=== PATIENT | female | born 1990 | race Caucasian/White ===

== ENCOUNTER 2017-04-18 19:10 | Emergency (ER) | payer OTHER ==
[2017-04-18 19:26] VITALS: BMI 23.8
[2017-04-18] MEDS ORDERED: SODIUM CHLORIDE 1,000 ML IV STA (23:55)
[2017-04-18] MEDS ORDERED: KETOROLAC TROMETHAMINE 30 MG/1 ML VIAL IVPUSH ONE (23:55)
--- NOTE | 2017-04-19 00:08 | PDOC ---
*Physical Exam - Vital Signs Last Vital Signs Temp Pulse Resp BP Pulse Ox 98.3 F 87 18 120/57 99 04/18/17 19:23 04/18/17 19:23 04/18/17 19:23 04/18/17 19:23 04/18/17 19:23 - Physical Exam Comments: 04/19/17 00:06 The patient was examined by [LISA Monson] under my direct supervision. I personally evaluated the patient. I concur with the above findings and the plan of care. 26-year-old female from [facility] presents to the ER with pleuritic left- sided chest and back pain radiating to the left arm after arriving from [facility] several days previously. Patient has history of rheumatic heart disease and requires monthly injections of Bicillin penicillin. In the ER, patient is awake and alert, nontoxic appearing; vital signs are noted. Will obtain EKG. Will rule out PE with CTA or a of chest. We'll administer Bicillin penicillin. Will reassess. ED Treatment Course - LABORATORY CBC & Chemistry Diagram: 04/19/17 00:45 04/19/17 00:45 *DC/Admit/Observation/Transfer Diagnosis at time of Disposition: Atypical chest pain - Discharge Dispostion Disposition: HOME Condition at time of disposition: Stable - Referrals Referrals: Juliocesar Gonzalez MD [Staff Physician] - - Patient Instructions Printed Discharge Instructions: Polymyalgia Rheumatica, DI for Atypical Chest Pain Additional Instructions: Follow up with your primary care doctor. You should schedule these future injections with your doctor so you are not waiting in the emergency department for 4-6 hours. Return if any changes or concerns for further evaluation. You may also follow up with Dr. Gonzalez (Cardiology) to establish care. Print Language: ARMENIAN
[2017-04-19] MEDS ORDERED: PENICILLIN G BENZATHINE 1,200,000 UNIT/2 ML PFS IM ONE (00:15)
[2017-04-19] MEDS ORDERED: KETOROLAC TROMETHAMINE 30 MG/1 ML VIAL ONE (00:24)
[2017-04-19] MEDS ORDERED: PENICILLIN G BENZATHINE 2,400,000 UNIT/4 ML PFS ONE (00:25)
--- NOTE | 2017-04-19 00:43 | PDOC ---
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 states patient usually received PCN L-A for her symptoms every 21 days while back in [facility]. He reports she just came to this country 2 weeks ago and is now experiencing these symptoms because she has not received her antibiotic injection. Patient also c/o back pain on deep inspiration. She reportedly denies any other complaints at this time. LNMP: 2 weeks ago. PCP- None. Timing/Duration: constant Severity: moderate Modifying Factors: improves with: medication Associated Symptoms: denies: denies symptoms, chest pain, cough, diaphoresis, fever/chills, headaches, loss of appetite, malaise, nausea/vomiting, rash, seizure, shortness of breath, syncope, weakness, other Past History - Travel Traveled outside of the country in the last 30 days: No Close contact w/someone who was outside of country & ill: No - Past Medical History Allergies/Adverse Reactions: Allergies Allergy/AdvReac Type Severity Reaction Status Date / Time No Known Allergies Allergy Verified 04/18/17 19:25 Other medical history: rheumatoid arthritis - Suicide/Smoking/Psychosocial Hx Smoking History: Never smoked Review of Systems - Review of Systems Able to Perform ROS?: Yes Is the patient limited Latvian proficient: No Constitutional: No: Chills, Fever Respiratory: No: Cough, Shortness of Breath, Wheezing, Hemoptysis Cardiac (ROS): Yes: Chest Pain. No: Lightheadedness, Palpitations, Syncope, Chest Tightness ABD/GI: No: Constipated, Diarrhea, Nausea, Poor Appetite, Poor Fluid Intake, Vomiting, Abdominal cramping : No: Burning, Dysuria, Flank Pain, Hematuria Musculoskeletal: Yes: Back Pain Integumentary: No: Bruising, Erythema, Rash, Sweating Neurological: No: Headache, Tremors, Ataxia, Dizziness All Other Systems: Reviewed and Negative *Physical Exam - Vital Signs Last Vital Signs Temp Pulse Resp BP Pulse Ox 98.3 F 87 18 120/57 99 04/18/17 19:23 04/18/17 19:23 04/18/17 19:23 04/18/17 19:23 04/18/17 19:23 - Physical Exam General Appearance: Yes: Nourished, Appropriately Dressed, Mild Distress. No: Apparent Distress, Moderate Distress, Severe Distress Neck: positive: Trachea midline, Supple. negative: Tender, Normal Thyroid, Rigid, Stridor, Lymphadenopathy (R), Lymphadenopathy (L), Tender lateral, Tender midline Respiratory/Chest: positive: Lungs Clear, Normal Breath Sounds. negative: Chest Tender, Respiratory Distress, Accessory Muscle Use, Labored Respiration, Rapid RR, Decreased Breath Sounds, Paradoxal Breathing, Rhonchi, Stridor, Wheezing Cardiovascular: positive: Regular Rhythm, Regular Rate Gastrointestinal/Abdominal: positive: Normal Bowel Sounds, Soft. negative: Distended, Guarding, Rebound, Tenderness Musculoskeletal: positive: Normal Inspection, Other (Reproducible chest pain on palpation.). negative: CVA Tenderness Extremity: positive: Normal Capillary Refill, Normal Inspection, Normal Range of Motion. 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 NML intact, Fully Oriented, Alert, Normal Mood/ Affect, Normal Response, Motor Strength 5/5 ED Treatment Course - LABORATORY CBC & Chemistry Diagram: 04/19/17 00:45 04/19/17 00:45 - RADIOLOGY Radiology Studies Ordered: Category Date Time Status CHEST CTA [CT] Stat CT Scan 04/19/17 00:07 Ordered *DC/Admit/Observation/Transfer Diagnosis at time of Disposition: Atypical chest pain - Discharge Dispostion Disposition: HOME Condition at time of disposition: Stable Admit: No - Referrals Referrals: Juliocesar Gonzalez MD [Staff Physician] - - Patient Instructions Printed Discharge Instructions: Polymyalgia Rheumatica, DI for Atypical Chest Pain Additional Instructions: Follow up with your primary care doctor. You should schedule these future injections with your doctor so you are not waiting in the emergency department for 4-6 hours. Return if any changes or concerns for further evaluation. You may also follow up with Dr. Gonzalez (Cardiology) to establish care. Print Language: FRENCH
[2017-04-19 01:04] LABS: BASOPHIL 0.7 % (0-2.0); EOSINOPHIL 3.8 % (0-4.5); MCH 30.7 pg (25.7-33.7); MCHC 33.5 g/dl (32.0-36.0); MEAN CELL VOLUME 91.5 fl (80-96); NEUTROPHILS 35.3 % (42.8-82.8); PLATELET COUNT 250 K/MM3 (134-434); RDW 13.8 % (11.6-15.6); URINE APPEARANCE SLCLOUDY; URINE BILIRUBIN NEGATIVE (NEGATIVE); URINE BLOOD NEGATIVE (NEGATIVE); URINE COLOR LTYELLOW; URINE GLUCOSE (UA) NEGATIVE (NEGATIVE); URINE KETONE NEGATIVE (NEGATIVE); URINE LEUK ESTERASE TRACE (NEGATIVE); URINE NITRITE NEGATIVE (NEGATIVE); URINE PROTEIN NEGATIVE (NEGATIVE); URINE UROBILINOGEN NEGATIVE mg/dL (0.2-1.0)
[2017-04-19 01:09] LABS: URINE MUCUS RARE; URINE RBC <1 /hpf (0-3); URINE WBC 6 /hpf (3-5)
[2017-04-19 01:22] LABS: INR 1.12 (0.82-1.09); PROTHROMBIN TIME (PATIENT) 12.4 SEC (9.98-11.88)
[2017-04-19 01:25] LABS: ACTIVATED PTT 33.7 SECONDS (26.9-34.4)
[2017-04-19 01:30] LABS: ALBUMIN 3.8 g/dl (3.4-5.0); ANION GAP 7 (8-16); CALCIUM 8.9 mg/dL (8.5-10.1); CO2 28 mmol/L (21-32); CREATININE 0.5 mg/dL (0.55-1.02); GLUCOSE,RANDOM 87 mg/dL (74-106); SGOT/AST 16 U/L (15-37); SGPT/ALT 28 U/L (12-78)
[2017-04-19 01:33] LABS: ALK PHOS 51 U/L (45-117); BILIRUBIN,TOTAL 0.2 mg/dL (0.2-1.0); CPK 56 IU/L (26-192); TOT PROT 6.9 g/dl (6.4-8.2); TROPONIN I < 0.02 ng/ml (0.00-0.05)
[2017-04-19 03:42] VITALS: BP 115/68; PULSE 80; TEMP 98
--- NOTE | 2017-04-19 10:42 | EKG ---
Test Reason : Blood Pressure : / mmHG Vent. Rate : 056 BPM Atrial Rate : 056 BPM P-R Int : 148 ms QRS Dur : 078 ms QT Int : 440 ms P-R-T Axes : 048 040 043 degrees QTc Int : 424 ms SINUS BRADYCARDIA OTHERWISE NORMAL ECG NO PREVIOUS ECGS AVAILABLE Confirmed by CONRADO ROSA MD ([id number]) on 04/19/2017 10:42:20 AM Referred By: Confirmed By:CONRADO ROSA MD
--- NOTE | 2017-04-26 14:19 | EKG ---
Test Reason : Blood Pressure : / mmHG Vent. Rate : 075 BPM Atrial Rate : 075 BPM P-R Int : 134 ms QRS Dur : 078 ms QT Int : 376 ms P-R-T Axes : 067 061 060 degrees QTc Int : 419 ms NORMAL SINUS RHYTHM WITH SINUS ARRHYTHMIA POSSIBLE LEFT ATRIAL ENLARGEMENT BORDERLINE ECG NO PREVIOUS ECGS AVAILABLE Confirmed by CONRADO ROSA MD ([id number]) on 04/26/2017 2:19:19 PM Referred By: Confirmed By:CONRADO ROSA MD
== END 2017-04-19 03:42 | disposition home or self-care (01) ==
LOC: JER 19:10
PROC: 3E02329 Introduction of Other Anti-infective into Muscle, Percutaneous Approach (ICD-10-PCS; principal; 2017-04-18)
PROC: 3E0333Z Introduction of Anti-inflammatory into Peripheral Vein, Percutaneous Approach (ICD-10-PCS; 2017-04-18)
DX: R07.89 Other chest pain (principal); I09.9 Rheumatic heart disease, unspecified
CPT/HCPCS: 36415; 71275-TC; 80053; 81003; 81015; 84484; 84703; 85025; 85379; 85610; 85730; 93005; 93010; 99282-25

== ENCOUNTER 2018-01-02 19:15 | Inpatient (IN) | payer OTHER ==
[2018-01-02] MEDS ORDERED: BUTORPHANOL TARTRATE 1 MG/ML VIAL IVPB ONE (20:16)
[2018-01-02] MEDS ORDERED: PROMETHAZINE HCL 25 MG/1 ML VIAL IVPUSH ONE (20:16)
--- NOTE | 2018-01-02 20:26 | HP ---
Past Medical History - Admission History of Present Illness: Pt is a 27 y/o female at 39.5 weeks gestation here for labor induction due to advanced cervical dilation/elective IOL. Pt seen over the weekend admitted in early prodromal labor which stalled out and the patient was sent home. complicated by abnormal AFP, patient and declined any invasive testing. GBS negative. 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 Weeks Gestation by Dates: 39.5 Psych: No: Anxiety, Bipolar, Depression Endocrine: No: Diabetes Mellitus, Hypothyroidism - Past Surgical History Past Surgical History: Yes: None Hx Myomectomy: No Hx Transabdominal Cerclage: No - Smoking History Smoking history: Never smoked Have you smoked in the past 12 months: No - Alcohol/Substance Use Hx Alcohol Use: No History of Substance Use: reports: None - Social History History of Recent Travel: No Home Medications - Allergies Allergies/Adverse Reactions: Allergies Allergy/AdvReac Type Severity Reaction Status Date / Time No Known Allergies Allergy Verified 09/15/17 12:21 - Home Medications Home Medications: Ambulatory Orders NK [No Known Home Medication] 12/30/17 Assessment/Plan 27 y/o with SIUP at 39.5 weeks for labor induction. - FHTS cat 1 - AFVSS - for AROM and pitocin - GBS negative
[2018-01-02] MEDS ORDERED: OXYTOCIN 30 UNITS in 0.9% NS 30 UNIT/500 ML INFUS.BAG IVPB SCH (20:30)
[2018-01-02] MEDS ORDERED: DEXTROSE 5%-LACTATED RINGERS 1,000 ML IV SCH (20:30)
[2018-01-02] MEDS ORDERED: OXYTOCIN 20 UNITS in 0.9% NS 20 UNIT/1,000 ML INFUS.BAG IV ONE ×2 (20:44→23:33)
[2018-01-02] MEDS ORDERED: OXYTOCIN 30 UNITS in 0.9% NS 30 UNIT/500 ML INFUS.BAG IVPB ONE (20:44)
[2018-01-02 21:17] VITALS: BMI 30.9
--- NOTE | 2018-01-02 21:55 | PN ---
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
[2018-01-02] MEDS ORDERED: BENZOCAINE 20% 57 GM BOTTLE TP PRN (22:09)
[2018-01-02] MEDS ORDERED: METHYLERGONOVINE MALEATE 0.2 MG/1 ML AMP IM PRN (22:09)
[2018-01-02] MEDS ORDERED: WITCH HAZEL 50% (TUCKS) 40 PAD/JAR PAD TP PRN (22:09)
[2018-01-02] MEDS ORDERED: BENZOCAINE 28 GM HEMORRHOIDAL OINTMENT TP PRN (22:09)
[2018-01-02] MEDS ORDERED: BISACODYL 10 MG SUPP.RECT RC PRN (22:09)
[2018-01-02] MEDS ORDERED: OXYTOCIN 20 UNITS in 0.9% NS 20 UNIT/1,000 ML INFUS.BAG IV SCH (22:15)
[2018-01-02] MEDS ORDERED: IBUPROFEN 600 MG TABLET (FP) PO ONE (23:33)
[2018-01-02] MEDS ORDERED: ACETAMINOPHEN 325 MG TABLET (FP) ONE (23:33)
[2018-01-02] MEDS: IBUPROFEN 600 MG TABLET (FP) PO PRN (23:40)
[2018-01-02] MEDS: ACETAMINOPHEN 325 MG TABLET (FP) PO PRN (23:40)
[2018-01-03 09:04] LABS: BASO % 0.4 % (0-2.0); EOS % 1.1 % (0-4.5); HEMATOCRIT 26.5 % (32.4-45.2); LYMPH % 26.7 % (8-40); MCH 28.6 pg (25.7-33.7); MCHC 33.8 g/dl (32.0-36.0); MEAN CELL VOLUME 84.4 fl (80-96); MEAN PLT VOLUME 10.1 fl (7.5-11.1); MONO % 9.5 % (3.8-10.2); NEUT % 62.3 % (42.8-82.8); PLATELET COUNT 167 K/MM3 (134-434); RBC 3.14 M/mm3 (3.60-5.2); RDW 15.9 % (11.6-15.6); WHITE BLOOD COUNT 8.9 K/mm3 (4.0-10.0)
--- NOTE | 2018-01-03 09:40 | PN ---
Post Progress Note - Subjective Subjective: Pt seen/evaluated no complaints. Denies pain. No n/v. Bleeding minimal. Type of Delivery: Vital Signs: Vital Signs Temperature 98.0 F 01/03/18 00:15 Pulse Rate 52 L 01/03/18 00:15 Respiratory Rate 20 01/03/18 00:15 Blood Pressure 147/78 01/03/18 00:15 O2 Sat by Pulse Oximetry (%) Uterus: Yes: Fundus Firm Abdomen/GI: Yes: Abdomen soft, Tolerating PO Lochia: Yes: Rubra Lochia, amount: Small Extremities: Yes: Calves non-tender. No: Edema Perineum: Yes: Laceration (1st degree repaired and healing well) Activity: Ambulating Problem List - Problems (1) Vaginal delivery Code(s): O80 - ENCOUNTER FOR FULL-TERM UNCOMPLICATED DELIVERY Assessment/Plan 27 y/o PPD#1 s/p normal , doing well AFVSS CBC Pending regular diet PO pain meds encourage ambulation
[2018-01-03] MEDS: PRENATAL VITAMINS W/ FOLIC ACID TABLET (FP) PO SCH (09:46)
[2018-01-03] MEDS: IBUPROFEN 600 MG TABLET (FP) PO PRN ×2 (10:08→15:56)
[2018-01-03] MEDS: ACETAMINOPHEN 325 MG TABLET (FP) PO PRN ×2 (10:08→15:57)
[2018-01-03] MEDS ORDERED: SENNOSIDES/DOCUSATE COMBO (SENNA PLUS) TABLET (UD) PO PRN (22:00)
[2018-01-04] MEDS: IBUPROFEN 600 MG TABLET (FP) PO PRN (03:24)
--- NOTE | 2018-01-04 03:55 | DS ---
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 Pt had normal post recovery and was discharged home on post day 2. Condition: Good - Instructions Diet, Activity, Other Instructions: call md office for follow up appointment in 4 weeks. Physical activity Resume your normal everyday activity as tolerated no heavy lifting or exercise until seen by your surgeon. You may walk unlimited eric of and climb stairs. You may resume driving the car when you feel safe and comfortable behind the wheel. No sexual activity as instructed. Wound care If you have a bandage, leave it on, and keep dry for 48-72 hours. After that time discard the outer bandage. If they are tapes on the skin under the out of bandage leave them in place. They will peel off in the next 7 to 10 days. Do Not Peel them off. You may shower the day after surgery. If there are tapes present on the skin, you may shower over them. Diet There are no dietary restrictions. Eat healthy, high-fiber foods. Drink 6 to 8 glasses of liquid each day. This will assist in keeping your bowels are regular. Pain management You may take Tylenol or acetaminophen or Ibuprofen (for example, Motrin, Advil etc.) from my pain prescription medication is ordered should be taken as prescribed for moderate to severe pain. Call MD for any of the following: Severe pain not relieved by medication Fever of 101 or higher Excessive bleeding or drainage on dressing Inability to urinate Referrals: Janet Isabel DO [Staff Physician] - (6 weeks) Disposition: HOME - Home Medications Comprehensive Discharge Medication List: Ambulatory Orders Ibuprofen [Motrin -] 600 mg PO QID PRN #28 tablet 01/04/18
[2018-01-04] MEDS: PRENATAL VITAMINS W/ FOLIC ACID TABLET (FP) PO SCH (09:33)
[2018-01-04 10:10] VITALS: BP 97/50; PULSE 67; TEMP 98.3
== END 2018-01-04 11:50 | disposition home or self-care (01) | DRG 560 ==
LOC: JLDR 19:15 → J3W 01-03 00:29
PROVIDERS: ADMIT Obstetrics & Gynecology; ATTEND Obstetrics & Gynecology
PROC: 10E0XZZ Delivery of Products of Conception, External Approach (ICD-10-PCS; principal; 2018-01-02)
PROC: 0HQ9XZZ Repair Perineum Skin, External Approach (ICD-10-PCS; 2018-01-02)
DX: O70.0 First degree perineal laceration during delivery (principal); Z3A.39 39 weeks gestation of pregnancy; Z37.0 Single live birth
CPT/HCPCS: 36415; 59409; 71046-TC-FY; 85025; 85461; 86999

== ENCOUNTER 2018-07-02 10:50 | Emergency (ER) | payer OTHER ==
[2018-07-02 11:09] VITALS: BP 104/60; PULSE 89; TEMP 98.2; BMI 32.3
[2018-07-02] MEDS ORDERED: KETOROLAC TROMETHAMINE 60 MG/2 ML VIAL IM ONE (12:34)
[2018-07-02] MEDS ORDERED: KETOROLAC TROMETHAMINE 60 MG/2 ML VIAL ONE (12:36)
--- NOTE | 2018-07-02 12:40 | PDOC ---
History of Present Illness - General Chief Complaint: Pain, Acute Stated Complaint: PAIN, LT ARM Time Seen by Provider: 07/02/18 12:29 History Source: Patient Exam Limitations: No Limitations - History of Present Illness Initial Comments: 07/02/18 12:38 Patient came for evaluation of left shoulder pain. States his artery been seen by orthopedic surgeon and chaparrita with MRI request. Was hopeful that testing could be done in the emergency Department. was told by insurance with need approval and a specialist for interpretation which they have not yet completed. 2 months ago had a fall and landed on her left shoulder and since that time his had a problem. Has a small child and does frequent heavy lifting with strollers, car seat, and infant care. Denies numbness or tingling to hands, no neck injury. Has been using ibuprofen and cyclobenzaprine but concerned cyclobenzaprine makes her dizzy and sleepy. Occurred: reports: other Severity: reports: moderate Pain Location: reports: upper extremity (left shoulder capsule tenderness ) Method of Injury: Yes: fall (2 month ago ) Modifying Factors: improves with: cold therapy Loss of Consciousness: no loss of consciousness Associated Symptoms (Fall): denies symptoms Past History - Travel Traveled outside of the country in the last 30 days: No Close contact w/someone who was outside of country & ill: No - Past Medical History Allergies/Adverse Reactions: Allergies Allergy/AdvReac Type Severity Reaction Status Date / Time No Known Allergies Allergy Verified 09/15/17 12:21 Home Medications: Ambulatory Orders NK [No Known Home Medication] 07/02/18 Asthma: No Cancer: No Cardiac Disorders: No COPD: No Diabetes: No HTN: No Seizures: No Thyroid Disease: No - Reproductive History (#): 5 Para: 2 Cervical CA: No Dysfunctional Uterine Bleeding: No Ectopic : No Endometrial CA: No Polycystic Ovaries: No Therapeutic (s) & number: No Tubal Ligation: No Spontaneous : 2 - Immunization History Immunization Up to Date: No - Suicide/Smoking/Psychosocial Hx Smoking History: Never smoked Have you smoked in the past 12 months: No Information on smoking cessation initiated: No Hx Alcohol Use: No Drug/Substance Use Hx: No Substance Use Type: None Hx Substance Use Treatment: No Review of Systems - Review of Systems Able to Perform ROS?: Yes ( here interprettin) Is the patient limited Swedish proficient: No Constitutional: Yes: See HPI. No: Symptoms Reported, Fever HEENTM: Yes: See HPI. No: Symptoms Reported Respiratory: Yes: See HPI. No: Symptoms reported, Cough Musculoskeletal: Yes: Symptoms Reported, See HPI, Joint Pain, Joint Stiffness ( left shoulder capsule, u) Integumentary: Yes: See HPI. No: Symptoms Reported All Other Systems: Reviewed and Negative *Physical Exam - Vital Signs Last Vital Signs Temp Pulse Resp BP Pulse Ox 98.2 F 89 18 104/60 98 07/02/18 11:07 07/02/18 11:07 07/02/18 11:07 07/02/18 11:07 07/02/18 11:07 - Physical Exam General Appearance: Yes: Nourished, Appropriately Dressed, Apparent Distress HEENT: positive: HOLLY, Normal ENT Inspection, TMs Normal, Pharynx Normal Neck: positive: Supple. negative: Tender Respiratory/Chest: positive: Lungs Clear, Normal Breath Sounds Musculoskeletal: positive: Normal Inspection Extremity: positive: Normal Capillary Refill. 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 We will recommend continuation of NSAIDs rest, and conservatve measyures until furhter evaluation *DC/Admit/Observation/Transfer Diagnosis at time of Disposition: Sprain of shoulder, left Qualifiers: Encounter type: initial encounter Shoulder sprain type: unspecified sprain Qualified Code(s): S43.402A - Unspecified sprain of left shoulder joint, initial encounter - Discharge Dispostion Disposition: HOME Condition at time of disposition: Stable Decision to Admit order: No - Referrals Referrals: Judah,Chris N., MD [Primary Care Provider] - Gene Tamayo MD [Staff Physician] - - Patient Instructions Printed Discharge Instructions: DI for Shoulder Sprain Additional Instructions: Rest, ice to area on and off for 15 minutes 4-6 times a day Avoid heavy lifting or exercise until pain and swelling is resolved or until further directed Keep area highly elevated to reduce swelling Use splints/Jas wrap as directed Followup with orthopedist in one to 2 days if not improving, if significantly improved may wait one week for followup with orthopedist May use ibuprofen 2-200 mg tablets every 6 hours as needed for pain - Post Discharge Activity
== END 2018-07-02 12:43 | disposition home or self-care (01) ==
LOC: JERFT 10:50
PROC: 3E0233Z Introduction of Anti-inflammatory into Muscle, Percutaneous Approach (ICD-10-PCS; principal; 2018-07-02)
DX: S43.402A Unspecified sprain of left shoulder joint, initial encounter (principal); X58.XXXA Exposure to other specified factors, initial encounter; Y93.89 Activity, other specified; Y92.89 Other specified places as the place of occurrence of the external cause
CPT/HCPCS: 96372; 99281-25